=== PATIENT | male | born 1950 | race Caucasian/White ===

== ENCOUNTER → 2016-12-07 | Outpatient (CLI) | payer SELFPAY | LOC: GMAL 15:23 | PROVIDERS: ATTEND Family Medicine | DX: D51.3 Other dietary vitamin B12 deficiency anemia (principal); E11.9 Type 2 diabetes mellitus without complications; E78.4 Other hyperlipidemia; R53.83 Other fatigue; E55.9 Vitamin D deficiency, unspecified; Z79.899 Other long term (current) drug therapy ==

== ENCOUNTER → 2017-05-23 | Outpatient (CLI) | payer BC | END | disposition home or self-care (01) | LOC: GMAL 12:42 | PROVIDERS: ATTEND Family Medicine | DX: E11.9 Type 2 diabetes mellitus without complications (principal); Z12.5 Encounter for screening for malignant neoplasm of prostate; E55.9 Vitamin D deficiency, unspecified; Z79.899 Other long term (current) drug therapy ==

== ENCOUNTER → 2017-12-20 | Outpatient (CLI) | payer MEDICARE | LOC: GMAL 15:09 | PROVIDERS: ATTEND Family Medicine | DX: L02.414 Cutaneous abscess of left upper limb (principal) ==

== ENCOUNTER → 2018-03-01 | Outpatient (CLI) | payer MEDICARE | LOC: GMAL 12:10 | PROVIDERS: ATTEND Family Medicine | DX: S61.209A Unspecified open wound of unspecified finger without damage to nail, initial encounter (principal) ==

== ENCOUNTER → 2018-08-09 | Outpatient (CLI) | payer MEDICARE ==
--- NOTE | 2018-08-09 13:53 | RAD ---
EXAM DESCRIPTION: Cervical Spine,3 Views CLINICAL HISTORY: 68 years Male, OSTEOARTHRITIS OF NECK COMPARISON: None. FINDINGS: Three-view cervical spine demonstrates normal alignment with preservation of vertebral and disc height with minimal disc space narrowing at C5-6. Very mild facet arthropathy on the AP view is noted with the odontoid is intact. No soft tissue swelling evident. IMPRESSION: Mild degenerative changes cervical spine. Electronically signed by: Suresh Mckinney MD 08/09/2018 1:51 PM [facility]
== END ==
LOC: RAD 10:23
PROVIDERS: ATTEND Family Medicine
DX: M47.812 Spondylosis without myelopathy or radiculopathy, cervical region (principal)

== ENCOUNTER → 2018-10-31 | Outpatient (CLI) | payer MEDICARE | LOC: GMAL 17:16 | PROVIDERS: ATTEND Family Medicine | DX: D51.3 Other dietary vitamin B12 deficiency anemia (principal); E11.9 Type 2 diabetes mellitus without complications; R53.83 Other fatigue; E55.9 Vitamin D deficiency, unspecified; Z12.5 Encounter for screening for malignant neoplasm of prostate; Z79.899 Other long term (current) drug therapy | CPT/HCPCS: 82306; 82607; 84443; G0103 ==

== ENCOUNTER → 2018-11-01 | Outpatient (CLI) | payer MEDICARE ==
--- NOTE | 2018-11-01 14:02 | US ---
EXAM DESCRIPTION: Renal CLINICAL HISTORY: 68 years Male, BLADDER CANCER COMPARISON: Previous CT abdomen and pelvis March 22, 2016 TECHNIQUE: Retroperitoneal sonogram was performed to evaluate the kidneys and bladder. FINDINGS: Right kidney Right renal length is 11.2 cm. Renal cortical echogenicity is normal. Mild irregular cortical thinning consistent with scarring. Small echogenic focus in the cortex has a benign appearance measuring 8 mm. A small angiomyolipoma could have this appearance but no fatty lesion is seen in the kidney on the CT exam March 22, 2016. No right renal cyst or shadowing stone. No hydronephrosis. Left kidney Left renal length is 11.2 cm. Renal cortical thickness and echogenicity are normal. No left renal mass, cyst or shadowing stone. No hydronephrosis. Urinary bladder Prostate is large 4.6 cm in transverse dimension. Bladder wall thickness is normal for degree of distention. No bladder mass. Bladder volume is measured as 100 cc. IMPRESSION: Mild right renal scarring. Otherwise unremarkable sonographic appearance of the kidneys. Unremarkable appearance of the urinary bladder. Large prostate. Electronically signed by: Ez Carter MD 11/01/2018 2:00 PM CDT
== END ==
LOC: US 13:00
PROVIDERS: ATTEND Urology
DX: C67.9 Malignant neoplasm of bladder, unspecified (principal); N40.0 Benign prostatic hyperplasia without lower urinary tract symptoms

== ENCOUNTER → 2019-10-31 | Outpatient (CLI) | payer MEDICARE, OTHER ==
--- NOTE | 2019-10-31 11:06 | US ---
EXAM DESCRIPTION: Renal: Ultrasound. CLINICAL HISTORY: 69 years Male LOCALIZED PROSTATIC HYPERPLASIA WITH LOWER URINARY TRACT SYMPTOMS COMPARISON: Renal ultrasound October 2018. TECHNIQUE: Transcutaneous scanning: Two-dimensional and Doppler modes. FINDINGS: Right kidney measures 10.7 x 6.8 x 6.5 cm; mid-renal cortical thickness normal with normal .echogenicity. No hydronephrosis No echogenic stones. 8.6 mm cortical cyst. Smooth contour of the kidney with no perinephric fluid. Normal vascularity. Proximal ureter not seen.. Left kidney measures 11.4 x 6.4 x 6.1 cm; mid-renal cortical thicknessnumber. echogenicity. No hydronephrosis. No echogenic stones. Smooth contour of the kidney with no perinephric fluid. Normal vascularity.. Proximal ureter not visualized.. Urinary bladder was visualized. Prevoid volume 99.9 mL. Ureteral jet in the bladder bilaterally visible with color Doppler. Post void volume 61.8 mL. Micturition volume 38.1 mL. No wall asymmetry or prominent nodule. Abdominal aorta: Normal caliber from the proximal segment to the distal bifurcation. IMPRESSION: 1. Decreased micturition volume in the bladder with postvoid volume slightly more than 60 mL. Bilateral ureteral jets seen by color Doppler in the bladder. No asymmetric wall thickening or prominent mural nodule. 2. Bilateral kidneys unremarkable except for small right renal cyst. Electronically signed by: Pavel Fontaine MD 10/31/2019 11:05 AM CDT
== END ==
LOC: LAB.O 11:37
PROVIDERS: ATTEND Family Medicine
DX: N32.81 Overactive bladder (principal); N28.1 Cyst of kidney, acquired; I10 Essential (primary) hypertension; E11.9 Type 2 diabetes mellitus without complications; N40.1 Benign prostatic hyperplasia with lower urinary tract symptoms; Z12.5 Encounter for screening for malignant neoplasm of prostate
CPT/HCPCS: 36415; 76775; 80053; 80061; 83036; 85025; G0103

== ENCOUNTER → 2019-12-16 | Outpatient (CLI) | payer MEDICARE, OTHER | LOC: GMAL 15:22 | PROVIDERS: ATTEND Family Medicine | DX: E34.9 Endocrine disorder, unspecified (principal); E29.1 Testicular hypofunction ==

== ENCOUNTER → 2020-03-04 | Outpatient (CLI) | payer MEDICARE | LOC: GMAHI 14:39 | PROVIDERS: ATTEND Nurse Practitioner Family | DX: E34.9 Endocrine disorder, unspecified (principal) ==

== ENCOUNTER → 2020-04-22 | Outpatient (CLI) | payer SELFPAY ==
--- NOTE | 2020-04-22 14:35 | CT ---
EXAM DESCRIPTION: Cardiac Calcium Scoring Screen: Computed Tomography. CLINICAL HISTORY: Coronary Artery Calcium Scoring COMPARISON: None. TECHNIQUE: Spiral-axial scans at 2.5 X 0.4 mm intervals through the coronary arteries without IV contrast. Special algorithm was used, and cardiac gating. No reconstructions. Total Exam DLP: 165 mGy-cm. This exam was performed according to our departmental CT dose-optimization program which includes automated exposure control, adjustment of the mA and/or kV according to patient size and/or use of iterative reconstruction technique; to reduce radiation dose to as low as reasonably achievable (ALARA). Some images may have been skipped or repeated due to the heart rhythm or respiration. FINDINGS: The patient has a total Agatston calcium score of 462. This places the patient in the 60th percentile in comparison to a group of patients asymptomatic for coronary artery disease with the same age and gender. This means that 60% of males ages 66-70 have calcium scores lower than the patient. Most calcium was in the left circumflex artery. Calcium also seen in the left main and LAD coronary vessels. The included mediastinum, bilateral daniel, and included cally-hilar lung demonstrating no mediastinal or hilar mass, no parenchymal infiltrate or mass.. IMPRESSION: 1. Total coronary artery calcium score of 462. 60th percentile for age and gender. 2. The included mediastinum, lung, and cally-hilar areas are unremarkable. Electronically signed by: Pavel Fontaine MD 04/22/2020 2:34 PM CDT
== END ==
LOC: CT 12:59
PROVIDERS: ATTEND Internal Medicine Cardiovascular Disease
DX: E78.2 Mixed hyperlipidemia (principal)

== ENCOUNTER → 2020-07-08 | Outpatient (CLI) | payer MEDICARE, OTHER | LOC: LAB.O 11:34 | PROVIDERS: ATTEND Urology | DX: E29.1 Testicular hypofunction (principal) ==